=== PATIENT | female | born 1980 | race African-American/Black ===

== ENCOUNTER 2023-04-04 02:53 | Emergency (ER) | payer BC, OTHER ==
[~2023-04-04] VITALS: Ht 165.1 cm; Wt 85.0 kg
[2023-04-04 03:04] VITALS: BP 156/69; PULSE 66; RESP 16; TEMP 98.2
[2023-04-04] MEDS ORDERED: PERTUSS(ACELL),DIPH,TET VAC/PF 0.5 ML SYRINGE IM. ONE (03:45)
== END 2023-04-04 03:57 | disposition home or self-care (01) ==
LOC: EMS 02:55
DX: S61.215A Laceration without foreign body of left ring finger without damage to nail, initial encounter (principal); W26.0XXA Contact with knife, initial encounter; Y93.89 Activity, other specified; Y92.89 Other specified places as the place of occurrence of the external cause; Y99.8 Other external cause status
CPT/HCPCS: 12001; 99282; Z7502